=== PATIENT | female | born 1935 | race Caucasian/White ===

== ENCOUNTER 2019-08-25 09:37 | Emergency (ER) | payer MEDICARE ==
--- NOTE | 2019-08-25 10:06 | RAD ---
RADIOGRAPH CHEST 1 VIEW: DATE: 08/25/2019 TIME: 10:00 AM HISTORY: 84-year-old female with chest pain COMPARISON: none FINDINGS: Large retrocardiac opacity occupying left lower lobe. The rest of the visualized lung cedeno are shital sly clear. No pneumothorax. Right lateral costophrenic angle is sharp. Left hemidiaphragm and left lateral costophrenic angles are effaced. IMPRESSION: Large hiatal hernia obscures the left lower lobe.
[2019-08-25] MEDS ORDERED: Sodium Chloride 0.9% 100 ML BAG ONE (10:17)
[2019-08-25] MEDS ORDERED: Iopamidol 370 76% 125 ML VIAL FS ONE (10:17)
[2019-08-25 10:34] LABS: #Basophils 0.1 thou/uL (0.0-0.2); #Eosinphils 0.3 thou/uL (0.0-0.7); #Lymphocytes 1.5 thou/uL (1.20-3.40); #Monocytes 0.7 thou/uL (0.11-0.59); #Neutrophils 6.3 thou/uL (1.40-6.50); %Basophils 1.3 % (0.0-1.0); %Eosinophils 3.7 % (0.0-10.0); %Lymphocytes 16.3 % (21.0-51.0); %Monocytes 7.6 % (0.0-10.0); %Neutrophils 71.2 % (42.0-75.0); Hemoglobin 10.1 g/dL (12.0-16.0); Mean Corpuscular HGB CONC 31.1 g/dL (32.0-36.0); Mean Corpuscular Hemoglobin 30.8 pg (27.0-31.0); Mean Platelet Volume 7.3 fL (7.4-10.4); Platelet Count 244 thou/uL (130-400); RBC Distribution Width 12.7 % (11.5-14.5); Red Blood Cell (RBC) Count 3.29 mill/uL (4.20-5.40); White Blood Cell (WBC) Count 8.9 thou/uL (4.8-10.8)
[2019-08-25 10:47] LABS: ALT (SGPT) 14 U/L (8-55); AST (SGOT) 25 U/L (5-34); Albumin 3.4 g/dL (3.4-4.8); Alkaline Phosphatase 71 U/L (40-110); Anion Gap 13 mmol/L (10-20); BUN (Urea Nitrogen) 12 mg/dL (9.8-20.1); Bilirubin, Total 0.4 mg/dL (0.2-1.2); CK (CPK) 122 U/L (29-168); Calc. Creatinine Clearance 0 mL/min (70-130); Calcium 8.6 mg/dL (7.8-10.44); Carbon Dioxide 23 mmol/L (23-31); Chloride 111 mmol/L (98-107); Estimated GFR-MDRD 56; Globulin 2.6 g/dL (2.4-3.5); Glucose 121 mg/dL (83-110); Lipase 55 U/L (8-78); Potassium 4.3 mmol/L (3.5-5.1); Sodium 143 mmol/L (136-145)
[2019-08-25] MEDS ORDERED: Ondansetron PF 4 MG/2 ML Vial ONE (11:29)
--- NOTE | 2019-08-25 12:44 | CT ---
CT ANGIOGRAM THORAX WITH CONTRAST: (CTA pulmonary angiogram) DATE: 08/25/2019 HISTORY: 84-year-old female with chest pain TECHNIQUE: IV injection of iodinated contrast. Scan acquisition timing attempted to coincide with iodinated contrast bolus reaching maximal density in pulmonary arteries. 3-D MIP reconstructions. FINDINGS: Pulmonary thromboembolism: None. Lungs: Compressive atelectasis around the hiatal hernia at left lower lobe. Otherwise, No consolidati on or edema. Hyperinflation. No bullae. A few nonspecific noncalcified pulmonary nodules. Pneumothorax: None. Pleural effusion: Small on left. Tiny on right. 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 Thoracic aorta: No aneurysm or dissection. IMPRESSION: 1. No pulmonary thromboembolism. 2. Large paraesophageal hiatal hernia. 3. Mild centrilobular emphysema.
== END 2019-08-25 13:10 | disposition left against medical advice (07) ==
LOC: MADERS 09:37
DX: R07.9 Chest pain, unspecified (principal); I10 Essential (primary) hypertension
CPT/HCPCS: 36415; 71045; 71275; 80053; 82550; 83690; 84484; 85025; 85379; 93005; 96374; J2405; J3490; Q9967

== ENCOUNTER 2021-06-18 08:41 | Emergency (ER) | payer MEDICARE ==
[2021-06-18 10:01] LABS: SARS-CoV-2 NAA Rapid Test Not Detected (NotDetected)
[2021-06-18] MEDS ORDERED: Azithromycin 250 MG TAB ONE (10:23)
[2021-06-18] MEDS ORDERED: Albuterol 200 PUFF (6.7GM INHALER) ONE (10:36)
== END 2021-06-18 10:40 | disposition home or self-care (01) ==
LOC: MADERS 08:41
DX: J06.9 Acute upper respiratory infection, unspecified (principal); Z20.822 Contact with and (suspected) exposure to COVID-19; E78.5 Hyperlipidemia, unspecified; I10 Essential (primary) hypertension
CPT/HCPCS: 71045; U0002

== ENCOUNTER 2022-01-07 18:54 | Emergency (ER) | payer MEDICARE ==
[2022-01-07 19:44] LABS: Bilirubin Negative (Negative); Blood, Urine Trace (Negative); Clarity Clear (Clear); Glucose, Urine (Dipstick) Negative (Negative); Ketone, Urine Negative (Negative); Leukocyte Negative (Negative); Nitrite Negative (Negative); Protein, Urine (Dipstick) 100 mg/dL (Neg-Trace); Urobilinogen 0.2 mg/dL (Less than 2)
[2022-01-07 19:50] LABS: Bacteria/HPF Rare-Few HPF (None Seen); RBC/HPF 0-3 HPF (0-3); WBC/HPF 0-3 HPF (0-3)
[2022-01-07 20:41] LABS: SARS-CoV-2 NAA Rapid Test DETECTED (NotDetected)
[2022-01-07 20:44] LABS: ALT (SGPT) 26 U/L (8-55); AST (SGOT) 58 U/L (5-34); Albumin 4.1 g/dL (3.4-4.8); Alkaline Phosphatase 106 U/L (40-110); Anion Gap 20 mmol/L (10-20); BUN (Urea Nitrogen) 17 mg/dL (9.8-20.1); Bilirubin, Total 0.3 mg/dL (0.2-1.2); CK (CPK) 253 U/L (29-168); Calc. Creatinine Clearance 0 mL/min (70-130); Calcium 9.7 mg/dL (7.8-10.44); Carbon Dioxide 22 mmol/L (23-31); Chloride 101 mmol/L (98-107); Globulin 2.8 g/dL (2.4-3.5); Glucose 92 mg/dL (83-110); Lipase 27 U/L (8-78); Potassium 4.3 mmol/L (3.5-5.1); Protein, Total 6.9 g/dL (5.8-8.1); Sodium 139 mmol/L (136-145)
[2022-01-07 20:58] LABS: Hemoglobin 12.5 g/dL (12.0-16.0); Mean Corpuscular HGB CONC 31.9 g/dL (32.0-36.0); Mean Corpuscular Hemoglobin 32.5 pg (27.0-31.0); Mean Corpuscular Volume 101.7 fL (78.0-98.0); Platelet Count 192 thou/uL (130-400); RBC Distribution Width 12.2 % (11.5-14.5); Red Blood Cell (RBC) Count 3.85 mill/uL (4.20-5.40); White Blood Cell (WBC) Count 3.9 thou/uL (4.8-10.8)
[2022-01-07 20:59] LABS: Band 4 % (5-11); Eosinophils 1 % (0-10); Lymphocytes 22 % (21-51); MDiff Complete? YES; Monocytes 9 % (0-10); Neutrophil 64 % (42-75); Platelet Morphology Comment Appears Adequate; RBC Morphology Normal
[2022-01-07 21:16] LABS: CKMB 3.1 ng/mL (0-6.6)
[2022-01-07 22:01] LABS: Troponin I 0.024 ng/mL (< 0.028)
== END 2022-01-07 22:54 | disposition home or self-care (01) ==
LOC: MADERS 18:54
DX: U07.1 COVID-19 (principal); E78.5 Hyperlipidemia, unspecified; E78.00 Pure hypercholesterolemia, unspecified; M06.9 Rheumatoid arthritis, unspecified
CPT/HCPCS: 71045; 80053; 82550; 82553; 83605; 83690; 84484 ×2; 85025; 87081; 87430; 87804 ×2; 93005; 99284; U0002; 36415; 81003; 81015

== ENCOUNTER 2022-01-09 18:17 | Emergency (ER) | payer MEDICARE ==
[2022-01-09 19:06] LABS: ALT (SGPT) 25 U/L (8-55); AST (SGOT) 50 U/L (5-34); Albumin 3.9 g/dL (3.4-4.8); Alkaline Phosphatase 98 U/L (40-110); Anion Gap 19 mmol/L (10-20); BUN (Urea Nitrogen) 21 mg/dL (9.8-20.1); Bilirubin, Total 0.3 mg/dL (0.2-1.2); Calc. Creatinine Clearance 0 mL/min (70-130); Calcium 8.7 mg/dL (7.8-10.44); Carbon Dioxide 21 mmol/L (23-31); Chloride 100 mmol/L (98-107); Globulin 2.6 g/dL (2.4-3.5); Glucose 103 mg/dL (83-110); Potassium 3.5 mmol/L (3.5-5.1); Protein, Total 6.5 g/dL (5.8-8.1); Sodium 136 mmol/L (136-145)
[2022-01-09 19:17] LABS: Band 2 % (5-11); Hemoglobin 12.6 g/dL (12.0-16.0); Lymphocytes 31 % (21-51); MDiff Complete? YES; Mean Corpuscular HGB CONC 32.1 g/dL (32.0-36.0); Mean Corpuscular Hemoglobin 31.6 pg (27.0-31.0); Mean Corpuscular Volume 98.5 fL (78.0-98.0); Mean Platelet Volume 8.5 fL (7.4-10.4); Monocytes 11 % (0-10); Neutrophil 51 % (42-75); Platelet Count 186 thou/uL (130-400); Platelet Morphology Comment Appears Adequate; RBC Distribution Width 11.9 % (11.5-14.5); RBC Morphology Normal; Reactive Lymphocytes 5 % (0-10); White Blood Cell (WBC) Count 2.2 thou/uL (4.8-10.8)
[2022-01-09 19:22] LABS: Magnesium 1.6 mg/dL (1.6-2.6)
[2022-01-09] MEDS ORDERED: Lactated Ringer's 1,000 ML ONE (19:29)
[2022-01-09] MEDS ORDERED: Aspirin Chewable 81 MG TAB ONE (19:29)
[2022-01-09 19:31] LABS: CKMB 7.6 ng/mL (0-6.6)
[2022-01-09] MEDS ORDERED: Magnesium 2 GM/50 ML BAG (IN WATER) ONE (19:45)
== END 2022-01-09 20:28 | disposition short-term general hospital (02) ==
LOC: MADERS 18:17
DX: U07.1 COVID-19 (principal); R77.8 Other specified abnormalities of plasma proteins; E78.5 Hyperlipidemia, unspecified; I10 Essential (primary) hypertension
CPT/HCPCS: 36415; 71045; 80053; 82553; 83735; 83880; 84443; 84484; 85025; 85379; 93005; 94760; 96365; J3475; J7120